=== PATIENT | female | born 2000 | race Caucasian/White ===

== ENCOUNTER 2024-04-12 13:34 | Emergency (ER) | payer BC, SELFPAY ==
--- NOTE | ~2024-04-12 | XR_ITS ---
EXAM: XR foot RT min 3V DATE: 04/12/2024 15:06 HISTORY: right foot pain . COMPARISON: None available. FINDINGS: Normal mineralization. Comminuted, nondisplaced fracture of the fifth metatarsal base. No lytic or blastic lesion. Joint spaces are maintained. No erosion or periosteal change. Soft tissue sw elling over the fracture site. IMPRESSION: Comminuted, nondisplaced right fifth metatarsal base fracture. Reviewed, dictated and finalized at location [facility]. [employer]
[2024-04-12 13:56] VITALS: BP 141/88; PULSE 97; RESP 20; TEMP 37; O2SAT 98
--- NOTE | 2024-04-12 15:51 | ED.GENADULT ---
HPI - General Adult General Chief complaint: Extremity Injury, Lower Stated complaint: right foot inj 5th tarsal Source: patient Mode of arrival: ambulatory Limitations: no limitations History of Present Illness HPI narrative: Pt presents for evaluation of right foot pain. Symptom onset yesterday. She twisted her ankle when walking to her car yesterday. She believes she fractured her fifth metatarsal. She had a 5th metatarsal fracture in the past and this feels similar. She rates her pain 2/10 at rest and when leg elevated but rates it 6/10 when her leg is dependent. She cannot bear weight on the extremity. She denies paresthesias. She is not taking any medications for her symptoms. She has been mobilizing with crutches. Related Data Allergies Allergy/AdvReac Type Severity Reaction Status Date / Time No Known Allergies Allergy Verified 04/12/24 14:04 Review of Systems Review of Systems: CONSTITUTIONAL: Denies fever, chills, or sweats. EYES: Denies visual changes, redness, or discharge. ENT: Denies rhinorrhea, congestion, sore throat, or otalgia. CARDIOVASCULAR: Denies chest pain, palpitations, or edema. RESPIRATORY: Denies cough or dyspnea. GASTROINTESTINAL: Denies abdominal pain, nausea, vomiting, or diarrhea. GENITOURINARY: Denies dysuria or hematuria. SKIN: Denies rash or itching. MUSCULOSKELETAL: Reports right foot pain NEUROLOGIC: Denies headache, numbness, dizziness, or weakness. PSYCHIATRIC: Denies anxiety or depression. [facility] Past Medical History Medical History (Updated 04/12/24 @ 16:10 by Nick Castillo, RONNIE, ) No pertinent past medical history Surgical History Surgical History No pertinent past surgical history Family History Family History Mother Family history non-contributory Social History Social History (Updated 04/12/24 @ 15:54 by RONNIE Lauren, ) Smoking status: Current every day smoker Tobacco type: e-cigarettes/vaping Gender identity (if verbalized by the patient): Female Sexual Orientation (if Verbalized by the Patient): Lesbian, Wiggins, or Homosexual Spiritual care concerns: No Exam Narrative: GENERAL: Well-appearing, well-nourished, and in no acute distress. HEAD: Normocephalic, atraumatic. EYES: PERRLA and EOMI. ENT: Nares clear, no rhinorrhea or epistaxis. Mucous membranes moist. Oropharynx without tonsillar hypertrophy exudate or other lesions. Bilateral TMs pearly doe nonbulging NECK: Supple. No adenopathy or masses. No carotid bruits or JVD CHEST: Clear to auscultation. No respiratory distress. No wheezes rales or rhonchi HEART: Regular rate and rhythm. No murmur heard. Normal peripheral pulses. ABDOMEN: Soft, nontender, nondistended, normal active bowel sounds. EXTREMITIES: She is able to dorsi and plantar flex the right foot. She is able to wiggle all digits of the right foot. There is soft tissue swelling in the dorsal/lateral aspect of the right foot. There is tenderness in the dorsal aspect of the proximal right foot overlying the fifth metatarsal. SKIN: Warm, dry, no rash. NEURO: No focal deficits. Alert and oriented x3. PSYCH: Normal mood and affect. Course Course Emergency Course: This is a 23-year-old female who presented for evaluation of right foot pain. X-ray showed proximal fifth metatarsal fracture. Placed in posterior short leg OCL. She has crutches. Advised to remain nonweightbearing. Will DC with hydrocodone. She indicates she is not as she is not sexually active with men. She should follow-up with orthopedics. Go to the emergency department for paresthesias, or intractable pain. Patient in agreement with of care Level of Care: Express Care Visit Vital Signs Vital signs: Vital Signs Temperature 37.0 C 04/12/24 13:56 Pulse Rate 97 04/12/24 13:56 Respiratory Rate 20 04/12/24 13:56 Blood Pressure 141/88 H 04/12/24 13:56 Pulse Oximetry 98 04/12/24 13:56 Oxygen Delivery Room Air 04/12/24 13:56 Temperature 37.0 C 04/12/24 13:56 Pulse Rate 97 04/12/24 13:56 Respiratory Rate 20 04/12/24 13:56 Blood Pressure 141/88 H 04/12/24 13:56 Pulse Oximetry 98 04/12/24 13:56 Oxygen Delivery Room Air 04/12/24 13:56 Procedures Orthopedic Splinting/Casting Injury #1: Splinting/Casting Date: 04/12/24 Splinting/Casting Time: 16:15 Side: right Lower Extremity Injury Location: foot Lower Extremity Immobilizer: posterior splint Splint: customized in ED OCL: short leg Pre-Procedure Neuro Vascular Exam: normal Post-Procedure Neuro Vascular Exam: normal Medical Decision Making Vital Signs Vital Signs: Vital Signs Temperature 37.0 C 04/12/24 13:56 Pulse Rate 97 04/12/24 13:56 Respiratory Rate 20 04/12/24 13:56 Blood Pressure 141/88 H 04/12/24 13:56 Pulse Oximetry 98 04/12/24 13:56 Oxygen Delivery Room Air 04/12/24 13:56 Temperature 37.0 C 04/12/24 13:56 Pulse Rate 97 04/12/24 13:56 Respiratory Rate 20 04/12/24 13:56 Blood Pressure 141/88 H 04/12/24 13:56 Pulse Oximetry 98 04/12/24 13:56 Oxygen Delivery Room Air 04/12/24 13:56 Imaging Data Radiologist's impression: EXAM: XR foot RT min 3V DATE: 04/12/2024 15:06 HISTORY: right foot pain . COMPARISON: None available. FINDINGS: Normal mineralization. Comminuted, nondisplaced fracture of the fifth metatarsal base. No lytic or blastic lesion. Joint spaces are maintained. No erosion or periosteal change. Soft tissue swelling over the fracture site. IMPRESSION: Comminuted, nondisplaced right fifth metatarsal base fracture. Discharge Plan Discharge Clinical Impression: Closed fracture of fifth metatarsal bone of right foot Patient Disposition: Home, Self-Care Condition: Stable Instructions: Antibiotic Form, Foot Fracture in Adults (ED) Additional Instructions: Please do not bear weight on your right foot Patient Language: Israeli Prescriptions: New hydrocodone-acetaminophen 5-325 mg tablet 1 - 2 tablet PO Q6H PRN (Reason: pain) Qty: 20 0RF Follow-up/Referrals: Mitch Oliva MD [Physician] - Stand Alone Forms: Work/School Release IP Time of Disposition: 16:12
== END 2024-04-12 16:18 | disposition home or self-care (01) ==
PROVIDERS: Emergency Provider Nurse Practitioner
DX: S92.354A Nondisplaced fracture of fifth metatarsal bone, right foot, initial encounter for closed fracture (principal); X50.9XXA Other and unspecified overexertion or strenuous movements or postures, initial encounter; F17.290 Nicotine dependence, other tobacco product, uncomplicated
CPT/HCPCS: 29515; 73630; 99204; G0463